=== PATIENT | male | born 1955 | race Caucasian/White ===

== ENCOUNTER 2019-05-01 13:03 | Emergency (ER) | payer OTHER ==
--- NOTE | 2019-05-01 14:12 | RAD REPORT ---
EXAM DESCRIPTION: CT - Thorax Wo Con - 05/01/2019 1:46 pm CLINICAL HISTORY: Chest pain status post fall COMPARISON: None TECHNIQUE: Computed axial tomography of the chest was obtained. Contrast was not requested. All CT scans are performed using dose optimization technique as appropriate and may include automated exposure control or mA/KV adjustment according to patient size. FINDINGS: The evaluation of mediastinum, ranjan and vessels is limited secondary to lack of IV contras t administration. Nondisplaced fractures involve the sixth and seventh left lateral ribs. Mildly displaced fracture inv olves the left eighth lateral rib. A pneumothorax is not seen. No pulmonary contusion A mediastinal hematoma is not seen. IMPRESSION: Nondisplaced fractures involve the sixth and seventh left lateral ribs. Mildly displaced fracture involves the left eighth lateral rib.
--- NOTE | 2019-05-01 14:15 | RAD REPORT ---
EXAM DESCRIPTION: CT - Abdomen Wo Contrast - 05/01/2019 1:47 pm CLINICAL HISTORY: Abdominal pain status post fall COMPARISON: None TECHNIQUE: Computed axial tomography from the diaphragm to the iliac crest was obtained. Oral contra st was given. IV contrast was not requested. All CT scans are performed using dose optimization technique as appropriate and may include automated exposure control or mA/KV adjustment according to patient size. FINDINGS: The evaluation of solid organs and vessels is limited secondary to the lack of IV contrast administration. Fatty liver The spleen, adrenals and kidneys appear grossly normal. Pancreas is atrophic. Periumbilical hernia contains fat No ascites IMPRESSION: No acute traumatic abnormality of the abdomen noted
[2019-05-01] MEDS ORDERED: IBUPROFEN 400 MG TAB ONE (15:10)
[2019-05-01] MEDS ORDERED: HYDROCODONE/APAP 7.5/325 MG TAB ONE (15:10)
--- NOTE | 2019-05-01 15:34 | EDPHYS ---
Physician Documentation [facility] Name: Felice Gordon Age: 63 yrs Sex: Male : 1955 Arrival Date: 05/01/2019 Time: 13:05 Bed 14 Private MD: ED Physician Idania Ma HPI: 05/01 13:21 This 63 yrs old Male presents to ER via Ambulatory with complaints of Fall cp Injury. 13:21 Details of fall: The patient fell from an upright position, while walking. cp 13:21 Onset: The symptoms/episode began/occurred 4 day(s) ago. Associated injuries: The cp patient sustained injury to the head, contusion, injury to the chest, specifically the left lateral anterior chest and left lateral posterior chest. Patient reports he [place] his balance at car wash causing him to fall to ground. Patient c/o left lateral rib pain. Historical: - Allergies: 13:11 No Known Allergies; aa5 - PMHx: 13:11 Hyperlipidemia; Hypertension; DVT; aa5 - PSHx: 13:11 genevieve knees; aa5 - Immunization history:: Adult Immunizations unknown. - Social history:: Smoking status: Patient uses tobacco products, smokes one pack cigarettes per day. - Ebola Screening: : No symptoms or risks identified at this time. ROS: 13:40 Constitutional: Negative for body aches, chills, fever, poor PO intake. cp 13:40 Eyes: Negative for injury, pain, redness, and discharge. cp 13:40 Cardiovascular: Positive for chest pain, of the left lateral anterior chest and left cp lateral posterior chest, Negative for edema, palpitations. 13:40 Respiratory: Negative for cough, shortness of breath, wheezing. 13:40 Abdomen/GI: Negative for vomiting, diarrhea, constipation, black/tarry stool, rectal bleeding. 13:40 Back: Negative for decreased range of motion. 13:40 : Negative for urinary symptoms. cp 13:40 MS/extremity: Negative for decreased range of motion, deformity. 13:40 Neuro: Negative for altered mental status, headache, loss of consciousness, syncope, weakness. 13:40 All other systems are negative. Exam: 13:45 Constitutional: The patient appears in no acute distress, alert, awake, non-toxic, well cp developed, well nourished. 13:45 Head/Face: Normocephalic, atraumatic. cp 13:45 Eyes: Periorbital structures: ecchymosis, that is mild, on the below left eye, Pupils: equal, round, and reactive to light and accomodation, Extraocular movements: intact throughout, Conjunctiva: normal, no exudate, no injection, Sclera: no appreciated abnormality, Lids and lashes: appear normal, bilaterally. 13:45 ENT: External ear(s): are unremarkable, Nose: is normal, Mouth: Lips: moist, Oral mucosa: pink and intact, moist, Posterior pharynx: is normal, airway is patent, no erythema, no exudate. 13:45 Neck: C-spine: vertebral tenderness, is not appreciated, crepitus, is not appreciated, ROM/movement: is normal, is supple, without pain, no range of motions limitations, no meningismus, no nuchal rigidity. 13:45 Chest/axilla: Inspection: normal, Palpation: crepitus, is not appreciated, tenderness, that is moderate, of the left lateral lower rib area. 13:45 Cardiovascular: Rate: normal, Rhythm: regular, Edema: is not appreciated, JVD: is not appreciated. 13:45 Respiratory: the patient does not display signs of respiratory distress, Respirations: normal, no use of accessory muscles, no retractions, no splinting, no tachypnea, labored breathing, is not present, Breath sounds: are clear throughout, no decreased breath sounds, no stridor, no wheezing. 13:45 Abdomen/GI: Inspection: abdomen appears normal, Bowel sounds: active, all quadrants, Palpation: abdomen is soft and non-tender, in all quadrants. 13:45 Back: CVA tenderness, is absent, vertebral tenderness, is not appreciated. Vital Signs: 13:11 BP 159 / 91; Pulse 63; Resp 18 S; Temp 99.0(TE); Pulse Ox 99% on R/A; Weight 95.25 kg aa5 (R); Height 5 ft. 6 in. (167.64 cm) (R); Pain 8/10; 15:00 BP 146 / 86; Pulse 66; Resp 19; Pulse Ox 99% on R/A; Pain 8/10; hb 13:11 Body Mass Index 33.89 (95.25 kg, 167.64 cm) aa5 MDM: 13:18 Patient medically screened. cp 14:00 Differential diagnosis: closed head injury, contusion, fracture, multiple trauma. cp 15:32 Data reviewed: vital signs, nurses notes, radiologic studies, CT scan, and as a result, cp I will discharge patient. 15:32 Counseling: I had a detailed discussion with the patient and/or guardian regarding: the cp historical points, exam findings, and any diagnostic results supporting the discharge/admit diagnosis, radiology results, to return to the emergency department if symptoms worsen or persist or if there are any questions or concerns that arise at home. Response to treatment: the patient's symptoms have markedly improved after treatment. 05/01 13:21 Order name: CT Chest Wo Con: fall 4 days ago; Complete Time: 14:54 cp 05/01 13:56 Order name: Abdomen Wo Contrast; Complete Time: 14:54 EDMS 05/01 14:55 Order name: INCENTIVE SPIROMETRY cp Administered Medications: 15:17 Drug: Hydrocodone-Acetaminophen (7.5 mg-325 mg) 1 tabs Route: PO; hb 15:46 Follow up: Response: Medication administered at discharge. hb 15:17 Drug: Ibuprofen 800 mg Route: PO; hb 15:47 Follow up: Response: Medication administered at discharge. hb Disposition: 05/01/19 15:33 Discharged to Home. Impression: Multiple fractures of ribs, left side - sixth, seventh, eighth, Other slipping, tripping and stumbling and falls. - Condition is Stable. - Discharge Instructions: Rib Fracture. - Prescriptions for Ibuprofen 800 mg Oral Tablet - take 1 tablet by ORAL route every 8 hours As needed take with food; 30 tablet. Tylenol- Codeine #3 300-30 mg Oral Tablet - take 2 tablets by ORAL route every 6 hours As needed; 20 tablet. - Medication Reconciliation Form, Thank You Letter, Antibiotic Education, Prescription Opioid Use form. - Follow up: Private Physician; When: 2 - 3 days; Reason: Recheck today's complaints. - Problem is new. - Symptoms have improved. Signatures: Dispatcher [employer] [facility] Soledad Guerrero RN RN aa5 Koby Eric PA PA cp Hemalatha Juarez RN RN Corrections: (The following items were deleted from the chart) 15:49 15:33 05/01/2019 15:33 Discharged to Home. Impression: Multiple fractures of ribs, left hb side - sixth, seventh, eighth; Other slipping, tripping and stumbling and falls. Condition is Stable. Forms are Medication Reconciliation Form, Thank You Letter, Antibiotic Education, Prescription Opioid Use. Follow up: Private Physician; When: 2 - 3 days; Reason: Recheck today's complaints. Problem is new. Symptoms have improved. cp
--- NOTE | 2019-05-01 15:34 | ER ---
Nurse's Notes [facility] Name: Felice Gordon Age: 63 yrs Sex: Male : 1955 Arrival Date: 05/01/2019 Time: 13:05 Bed 14 Private MD: Diagnosis: Multiple fractures of ribs, left side-sixth, seventh, eighth;Other slipping, tripping and stumbling and falls Presentation: 05/01 13:11 Presenting complaint: Patient states: "I fell at the car wash about 4 days ago, I aa5 slipped". pt c/o pain to left lateral aspect of chest, denies LOC, reports he takes anticoagulants. 13:11 Transition of care: patient was not received from another setting of care. Onset of aa5 symptoms was April 2019. Risk Assessment: Do you want to hurt yourself or someone else? Patient reports no desire to harm self or others. Initial Sepsis Screen: Does the patient meet any 2 criteria? No. Patient's initial sepsis screen is negative. Does the patient have a suspected source of infection? No. Patient's initial sepsis screen is negative. Care prior to arrival: None. 13:11 Acuity: PAULINO 3 aa5 13:11 Method Of Arrival: Ambulatory aa5 Historical: - Allergies: 13:11 No Known Allergies; aa5 - PMHx: 13:11 Hyperlipidemia; Hypertension; DVT; aa5 - PSHx: 13:11 genevieve knees; aa5 - Immunization history:: Adult Immunizations unknown. - Social history:: Smoking status: Patient uses tobacco products, smokes one pack cigarettes per day. - Ebola Screening: : No symptoms or risks identified at this time. Screenin:25 Abuse screen: Denies threats or abuse. Denies injuries from another. Nutritional hb screening: No deficits noted. Tuberculosis screening: No symptoms or risk factors identified. Fall Risk None identified. Assessment: 13:25 General: Appears in no apparent distress. uncomfortable, Behavior is calm, cooperative. hb Pain: Pain currently is 8 out of 10 on a pain scale. Neuro: Level of Consciousness is awake, alert, obeys commands, Oriented to person, place, time, situation. Cardiovascular: Capillary refill < 3 seconds Patient's skin is warm and dry. Respiratory: Airway is patent Respiratory effort is even, unlabored, Respiratory pattern is regular, symmetrical. GI: No signs and/or symptoms were reported involving the gastrointestinal system. : No signs and/or symptoms were reported regarding the genitourinary system. EENT: No signs and/or symptoms were reported regarding the EENT system. Derm: Skin is intact, is healthy with good turgor, abrasion to left cheek. Musculoskeletal: Reports pain in left lateral chest wall, left hio. 14:30 Reassessment: Patient appears in no apparent distress at this time. Patient and/or hb family updated on plan of care and expected duration. Pain level reassessed. Patient is alert, oriented x 3, equal unlabored respirations, skin warm/dry/pink. 15:30 Reassessment: Patient appears in no apparent distress at this time. Patient and/or hb family updated on plan of care and expected duration. Pain level reassessed. Patient is alert, oriented x 3, equal unlabored respirations, skin warm/dry/pink. Vital Signs: 13:11 BP 159 / 91; Pulse 63; Resp 18 S; Temp 99.0(TE); Pulse Ox 99% on R/A; Weight 95.25 kg aa5 (R); Height 5 ft. 6 in. (167.64 cm) (R); Pain 8/10; 15:00 BP 146 / 86; Pulse 66; Resp 19; Pulse Ox 99% on R/A; Pain 8/10; hb 13:11 Body Mass Index 33.89 (95.25 kg, 167.64 cm) aa5 ED Course: 13:05 Patient arrived in ED. aa5 13:11 Hemalatha Juarez, RN is Primary Nurse. hb 13:11 Arm band placed on Patient placed in an exam room, on a stretcher. aa5 13:12 Koby Eric PA is PHCP. cp 13:12 Idania Ma MD is Attending Physician. cp 13:14 Triage completed. aa5 13:25 Patient has correct armband on for positive identification. Bed in low position. Call hb light in reach. Side rails up X 1. 13:56 CT Chest Wo Con: fall 4 days ago In Process Unspecified. EDMS 13:56 Abdomen Wo Contrast In Process Unspecified. EDMS 15:05 INCENTIVE SPIROMETRY Sent. hb 15:48 No provider procedures requiring assistance completed. Patient did not have IV access hb during this emergency room visit. Administered Medications: 15:17 Drug: Hydrocodone-Acetaminophen (7.5 mg-325 mg) 1 tabs Route: PO; hb 15:46 Follow up: Response: Medication administered at discharge. hb 15:17 Drug: Ibuprofen 800 mg Route: PO; hb 15:47 Follow up: Response: Medication administered at discharge. hb Outcome: 15:33 Discharge ordered by MD. cp 15:48 Discharged to home ambulatory, with family. hb 15:48 Condition: stable 15:48 Discharge instructions given to patient, Instructed on discharge instructions, follow up and referral plans. medication usage, Demonstrated understanding of instructions, follow-up care, medications, Prescriptions given X 2. 15:49 Patient left the ED. hb Signatures: Dispatcher [employer] EDSoledad Horta, RN RN aa5 Koby Eric, PA PA Hemalatha Mcfadden RN RN hb Corrections: (The following items were deleted from the chart) 15:34 15:30 Patient is placed in psych hold hb hb
== END 2019-05-01 15:49 | disposition home or self-care (01) ==
LOC: ER 13:03
DX: S22.42XA Multiple fractures of ribs, left side, initial encounter for closed fracture (principal); W01.0XXA Fall on same level from slipping, tripping and stumbling without subsequent striking against object, initial encounter; Y93.89 Activity, other specified; Y92.89 Other specified places as the place of occurrence of the external cause; I10 Essential (primary) hypertension; F17.210 Nicotine dependence, cigarettes, uncomplicated
CPT/HCPCS: 71250; 74150; 99283